=== PATIENT | female | born 1970 | race Caucasian/White ===

== ENCOUNTER 2017-07-07 13:24 | Emergency (ER) | payer BC, OTHER ==
[2017-07-07 14:50] VITALS: BP 144/95
--- NOTE | 2017-07-07 18:50 | UC ---
Lorenzo Hernandez Julia, scribed for Ramy Bearden MD on 07/07/17 at 1725 . General HPI - HPI Summary HPI Summary: This patient is a 46 year old F presenting to [facility] with a chief complaint of sudden onset of general malaise for the past four days. Patient reports chills, low grade fever (99), headache, ear pain, sore throat, fatigue, and body aches. Patient denies urinary changes, diarrhea, and rash. The patient rates the pain 5 /10 in severity. - History of Current Complaint Chief Complaint: UCRespiratory Stated Complaint: FLU SYMPTOMS Time Seen by Provider: 07/07/17 16:49 Hx Obtained From: Patient Hx Last Menstrual Period: 06/03/17 Onset/Duration: Lasting Days Timing: Constant Pain Intensity: 5 Pain Location at: body Character: aches Associated Signs & Symptoms: Positive: Other - Allergy/Home Medications Allergies/Adverse Reactions: Allergies Allergy/AdvReac Type Severity Reaction Status Date / Time Sulfa (Sulfonamide Allergy Hives Verified 07/07/17 14:50 Antibiotics) Home Medications: Home Medications Cyanocobalamin TAB* [Vitamin B12 TAB*] 500 mcg PO DAILY 07/07/17 [History Confirmed 07/07/17] DULoxetine DR CAP* [Cymbalta CAP*] 30 mg PO DAILY 07/07/17 [History Confirmed ] Hydrocodone/Acetaminophen [Vicodin 5-300 mg] 1 tab PO BEDTIME 07/07/17 [History Confirmed 07/07/17] Magnesium Oxide [Magnesium] 400 mg PO DAILY 07/07/17 [History Confirmed 07/07/17 ] Pregabalin CAP(*) [Lyrica CAP(*)] 25 mg PO BID 07/07/17 [History Confirmed 07/07] PMH/Surg Hx/FS Hx/Imm Hx - Additional Past Medical History Additional PMH: fibromyalgia - Surgical History Surgical History: Yes Surgery Procedure, Year, and Place: X2, D&C, TONSILS, BREAST REDUCTION - Family History Known Family History: Positive: Cardiac Disease - grandparents - Social History Alcohol Use: Rare Substance Use Type: None Smoking Status (MU): Never Smoked Tobacco Review of Systems Constitutional: Fever, Chills, Fatigue Skin: Negative ENT: Sore Throat, Ear Ache Gastrointestinal: Negative Genitourinary: Negative Musculoskeletal: Myalgia - body aches All Other Systems Reviewed And Are Negative: Yes Physical Exam Triage Information Reviewed: Yes Vital Signs: Initial Vital Signs Temp 98.1 F 07/07/17 14:45 Pulse 96 07/07/17 14:45 Resp 16 07/07/17 14:45 BP 144/95 07/07/17 14:45 Pulse Ox 98 07/07/17 14:45 Vital Signs Reviewed: Yes - Additional Comments General: well-appearing, no pain distress Skin: warm, color reflects adequate perfusion, dry Head: normal Eyes: EOMI, LOIDA ENT: normal, clear rhinorrhea Neck: supple, nontender Respiratory: CTA, breath sounds present Cardiovascular: RRR Abdomen: soft, nontender Bowel: present Musculoskeletal: normal, strength/ROM intact Neurological: normal, sensory/motor intact, A&O x3 Psychological: affect/mood appropriate Course/Dx - Course Course Of Treatment: SYMPTOMATIC TREATMENT; GET RECHECKED IF WORSE. - Differential Dx - Multi-Symptom Provider Diagnoses: UPPER RESPIRATORY TRACT INFECTION Discharge - Discharge Plan Condition: Stable Disposition: HOME Patient Education Materials: Upper Respiratory Infection (ED) Forms: *Work Release Referrals: Gurjit Madera NP [Primary Care Provider] - Additional Instructions: FOLLOW UP WITH YOUR DOCTOR. GET RECHECKED FOR ANY WORSENING OF YOUR CONDITION OR QUESTIONS OR CONCERNS. The documentation as recorded by the Lorenzo aviles Julia accurately reflects the service I personally performed and the decisions made by me, Ramy Bearden MD.
== END 2017-07-07 17:37 | disposition home or self-care (01) ==
LOC: UCEAST 13:24
DX: J06.9 Acute upper respiratory infection, unspecified (principal); M79.7 Fibromyalgia; Z88.2 Allergy status to sulfonamides
CPT/HCPCS: 87502; 99211; G0463

== ENCOUNTER 2018-08-24 05:35 | Inpatient (IN) | payer BC, OTHER ==
[~2018-08-24 05:35] MED LIST: Buffered Lidocaine 1% SYRIN* 1 ML/SYRINGE INTRADERM ONE
--- OUTSIDE RECORDS SUMMARY | 2018-08-24 05:38 | XMS REPORT | Continuity of Care Document ---
:1970 External Reference #:[id number] Author Name SegundoBeena galaviz Care Team Providers Name Role Phone Gurjit Madera MANIPULATIVE THERAPY SPECIALIST Primary Care Physician Unavailable Payers Date Identification Numbers Payment Provider Subscriber Policy Number: [id number] [facility] Elle Mcconnell PayID: [id number] Outreach Director [address] [place] [address] Policy Number: [id number] [facility] Elle Murphy PayID: [id number] [address] [place] [address] Advance Directives Description No Information Available Problems Description No Active Problems Family History Date Family Member(s) Observation Comments Father Healthy Mother Osteopenia Mother Thyroid Disease Number of Children 2 First Son Healthy Second Son Healthy Number of Siblings Siblings: 1 First Brother [employer] Paternal Grandfather due to broken neck at 18 months () Paternal Grandmother due to Old Age () Maternal Grandfather due to VA () Maternal Grandmother due to VA () Social History Type Date Description Comments Sex Unknown Education Highest level of education completed is an associate degree Marital Status Patient is Living Situation Lives with spouse and sons 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 Cigarette Use Never smoked cigarettes Alcohol Rarely drinks alcohol approx 3 x yr or less Tobacco Use Start: Unknown Patient has never smoked Drug Use Denies drug use Smoking Status Reviewed: 08/18/18 Patient has never smoked Daily Caffeine Drinks on average 1 cup of coffee a day, 1 soda a day and 1 cup of tea a day Exercise Type/Frequency Exercises regularly Current Seat Belt/Car Seat Always uses a seat belt Currently Active The patient is currently not sexually active Contraceptive Methods Does not currently use any method of control STD's No STD history Allergies, Adverse Reactions, Alerts Date Description Reaction Status Severity Comments 05/07/2008 Sulfa Active Medications Medication Date Status Form Strength Qnty SIG Indications Ordering Provider Wellbutrin Active Unknown 000 Cymbalta Active Unknown 000 Lyrica Active Unknown 000 Crestor Active Unknown 000 Vitamin B 12 Active Unknown 000 B Complete Active Unknown 000 Vitamin D Active Unknown (Ergocalciferol) 000 Magnesium Active Unknown 000 Kyleena Active placed Unknown 000 06/29/18 Motrin Hx Tablets 600mg 100tabs 1 tid- Xiomara 008 - qid prn Jump, pain ANP-C 019 Celexa Hx Unknown 000 - 015 Multivitamins Hx Unknown 000 - 019 Calcium-D Hx Unknown 000 - 019 Vicodin Hx Unknown 000 - 019 Medications Administered in Office Medication Date Status Form Strength Qnty SIG Indications Ordering Provider PT SCRN Tbco Administered Injection Isabella, Mirta as Non User 019 MD Sherry Immunizations Description No Information Available Vital Signs Date Vital Result Comment 08/18/2018 9:46am Height 62 inches 5'2" 3 Parity 2 06/29/2018 1:11pm BP Systolic 138 mmHg BP Diastolic 82 mmHg Height 62 inches 5'2" Weight 152.00 lb BMI (Body Mass Index) 27.8 kg/m2 Last Menstrual Period [id number] 3 Parity 2 03/13/2015 2:09pm BP Systolic 126 mmHg BP Diastolic 84 mmHg Height 62 inches 5'2" Weight 202.00 lb BMI (Body Mass Index) 36.9 kg/m2 Last Menstrual Period 2293340 3 Parity 2 03/21/2013 3:17pm BP Systolic 118 mmHg BP Diastolic 70 mmHg Height 62 inches 5'2" Weight 172.00 lb BMI (Body Mass Index) 31.5 kg/m2 Last Menstrual Period [id number] 3 Parity 2 11/11/2010 3:24pm BP Systolic 100 mmHg BP Diastolic 62 mmHg Height 61.25 inches 5'1.25" Weight 126.00 lb BMI (Body Mass Index) 23.6 kg/m2 Last Menstrual Period [id number] 3 Parity 2 09/30/2010 3:21pm BP Systolic 110 mmHg BP Diastolic 70 mmHg Height 61.25 inches 5'1.25" Weight 128.00 lb BMI (Body Mass Index) 24.0 kg/m2 Last Menstrual Period 6672196 3 Parity 2 09/08/2009 8:08am BP Systolic 98 mmHg BP Diastolic 60 mmHg Height 62.5 inches 5'2.50" Weight 172.00 lb BMI (Body Mass Index) 31.0 kg/m2 Last Menstrual Period 6061085 3 Parity 2 05/07/2008 9:56am BP Systolic 122 mmHg BP Diastolic 78 mmHg Height 62.5 inches 5'2.50" Weight 182.00 lb BMI (Body Mass Index) 32.8 kg/m2 Last Menstrual Period 9194106 3 Parity 2 Results Test Date Facility Test Result H/L Range Note Laboratory test 03/13/2015 [facility] Cytology SEE RESULT 1 finding [place]HA [place] [address] BELOW [phone] Human Papilloma Virus Rna Negative N Negative 2 Human Papilloma 03/22/2013 [facility] Human Papillomavirus See Comment 3 [place] [address] Source [phone] Human Papillomavirus High Risk Negative Negative 4 Laboratory test 03/21/2013 [facility] Cytology RUN DATE: finding [place]HA [place] [address] SEE [phone] NOTE> Laboratory test 09/30/2010 [facility] Cytology 6 finding [place] [address] ----- <SEE [phone] NOTE> Laboratory test 09/08/2009 [facility] Cytology 7 finding [place] [address] ----- <SEE [phone] NOTE> Laboratory test 05/07/2008 [facility] TSH 2.04 MIU/ML 0.34- 5.60 finding [place] [address] [phone] Thyroxine Free 05/07/2008 [facility] Free Thyroxine 0.60 NG/ML Low 0.61-1.24 8 [place] [address] [phone] Laboratory test 05/07/2008 [facility] Cytology 9 [place] [address] ----- <SEE [phone] NOTE> Laboratory test 03/05/2003 [facility] TSH 1.55 MIU/ML 0.34- 5.60 [place] [address] [phone] Free Thyroxine 0.60 ng/dL 0.58-1.64 1 SEE RESULT BELOW Name: ELLE YOUNG : [address]: Xiomara Ventura DELIVERY ASSOCIATE Acct: [id number] Unit: [id number] AGE: 44 Location: [facility] Re03/13/15 SEX: F Status: REG REF SPEC: [id number] GIANA: 03/13/15-[address]: Xiomara Ventura DELIVERY ASSOCIATE REQ: [id number] RECD: 03/14/15 STATUS: SOUT _ ORDERED: IMAGE ANALYSIS, HPV/Thin Prep FINAL DIAGNOSIS Negative for Intraepithelial lesion or Malignancy A. Ectocervical/Endocervical Specimen Adequacy: Satisfactory of evaluation Transformation zone component identified Patient Information: HPV: High risk HPV RNA testing regardless of pap results. Actual Specimen Date: 03/14/15 Last Menstrual Date: 02/26/15 Date of Last Specimen: 03/21/13 Date Time Test Result Flag (u) Normal Range 03/13/15 1459 HPV RNA Negative Negative The high-risk HPV types detected by the assay include: 16, 18, 31, 33, 35, 39, 45, 51, 52, 56, 58, 59, 66, and 68. Signed (signature on file) ESTEBAN Damian (ASC) 03/17 1211 This Pap test was evaluated with the assistance of the Precision Biopsyp Test Imaging System. Due to cytologic findings at the pbx repairer microscope, comprehensive manual rescreening by a High Tension Tester may be required. The Pap Smear is a screening test designed to aid in the detection of premalignant and malignant conditions of the uterine cervix. It is not a diagnostic procedure and should not be used as the sole means of detecting cervical cancer. Both false- positive and false- negative reports do occur. Depending on your risk status, a Pap smear should be obtained and evaluated every 1-3 years. END OF REPORT * ML=Testing performed at Main Lab DEPARTMENT OF PATHOLOGY, [address] [place] [address] Coleman Thorne M.D. Director [facility] # [id number] 2 The high-risk HPV types detected by the assay include: 16, 18, 31, 33, 35, 39, 45, 51, 52, 56, 58, 59, 66, and 68. 3 RESULT: Ectocervical/Endocervical 4 For types 16, 18, 31, 33, 35, 39, 45, 51, 52, 56, 58, 59 and 68. Test Performed by: [address] [address] Job Molder: Zachariah Moya III, M.D. 5 RUN DATE: 03/22/13 [facility] LAB LIVE PAGE 1 RUN TIME: [address] [place] [address] Specimen Inquiry Name: ELLE YOUNG : [address]: Xiomara Ventura CNP Acct: [id number] Unit: [id number] AGE: 42 Location: [facility] Re03/21/13 SEX: F Status: REG REF SPEC: [id number] GIANA: 03/21/13-[address] [facility] [address]: Xiomara Ventura [facility] REQ: [id number] RECD: 03/22/13-6 STATUS: SOUT _ ORDERED: IMAGE ANALYSIS, HPV/Thin Prep FINAL DIAGNOSIS Negative for Intraepithelial lesion or Malignancy COMMENTS: Specimen sent to [facility] in [place], [place] on 03/22/13 by [id number] at 1428. Results will be reported separately. A. Ectocervical/Endocervical Specimen Adequacy: Satisfactory of evaluation Transformation zone component identified Patient Information: HPV: High risk HPV DNA testing regardless of pap results. Actual Specimen Date: 03/21/13 Last Menstrual Date: 03/13/13 Date of Last Specimen: 09/30/10 Signed (signature on file) ESTEBAN Damian (ASCP) 03/22 1509 This Pap test was evaluated with the assistance of the R&R Sy-TecPrep Test Imaging System. Due to cytologic findings at the pbx repairer microscope, comprehensive manual rescreening by a High Tension Tester may be required. The Pap Smear is a screening test designed to aid in the detection of premalignant and malignant conditions of the uterine cervix. It is not a diagnostic procedure and should not be used as the sole means of detecting cervical cancer. Both false- positive and false- negative reports do occur. Depending on your risk status, a Pap smear shoudl be obtained and evaluated every 1-3 years. END OF REPORT * ML=Testing performed at Main Lab DEPARTMENT OF PATHOLOGY, [address] [place] [address] Coleman Thorne M.D. Director [facility] Permit #[id number] --- RUN DATE: 10/02/10 [facility] NMI LIVE PAGE 1 RUN TIME: 1216 Specimen Inquiry RUN USER: INTERFACE -- Name: ELLE YOUNG Accvance#: [id number] Status: REG REF Re09/30/10 Age/Sex: 40/F Unit#: [id number] Location: [facility] : [birth year] -- Specimen: [id number] SOUT Spec Date: 09/30/[address]: Xiomara Wisdom mp DELIVERY ASSOCIATE Spec Type: CYTOLOGY Received: 10/01/10-1321 Copies to: SOURCE ECTOCERVICAL/ENDOCERVICAL Thin Prep with Reflex HPV Test PATIENT INFORMATION ACTUAL COLLECTION DATE: 09/30/10 ? No POST MENOPAUSAL? No LAST MENSTRUAL PERIOD: 09/25/10 DATE OF PRIOR SPECIMEN: 09/08/09 ADEQUACY OF SPECIMEN Satisfactory for evaluation * Transformation zone component identified * DIAGNOSIS NEGATIVE FOR INTRAEPITHELIAL LESION OR MALIGNANCY * This Pap test was evaluated with the assistance of the R&R Sy-TecPrep Pap Test Imaging System. The Pap Smear is a screening test designed to aid in the detection of premalign ant and malignant conditions of the uterine cervix. It is not a diagnostic procedure a nd should not be used as the sole means of detecting cervical cancer. Both false- positiv e and false-negative reports do occur. Depending on your risk status, a Pap smear elissa uld be obtained and evaluated every one to three years. Final Interpretation electronically signed by: Claudine SHAIKH([facility]) 10/01/10 152 8 -- -- DEPARTMENT OF PATHOLOGY, [address] [place] [address] [facility] Permit #[id number] Coleman Thorne M.D. Director Madina Linares M.D. Zipper Cutter Dir mac -- 7 --- RUN DATE: 09/09/09 [facility] NMI LIVE PAGE 1 RUN TIME: 1150 Specimen Inquiry RUN USER: INTERFACE -- Name: ELLE YOUNG Status: REG REF Re09/08/09 Age/Sex: 39/F Unit#: [id number] Location: [facility] : [birth year] -- Specimen: [id number] SOUT Spec Date: 09/08/[address]: Xiomara Wisdom DELIVERY ASSOCIATE Spec Type: CYTOLOGY Received: 09/09/09 Copies to: SOURCE ECTOCERVICAL/ENDOCERVICAL Thin Prep with Reflex HPV Test PATIENT INFORMATION ACTUAL COLLECTION DATE: 09/08/09 LAST MENSTRUAL PERIOD: 08/29/09 DATE OF PRIOR SPECIMEN: 05/07/08 ADEQUACY OF SPECIMEN Satisfactory for evaluation * Transformation zone component identified * DIAGNOSIS NEGATIVE FOR INTRAEPITHELIAL LESION OR MALIGNANCY * This Pap test was evaluated with the assistance of the R&R Sy-TecPrep Pap Test Imaging System. The Pap Smear is a screening test designed to aid in the detection of premalign ant and malignant conditions of the uterine cervix. It is not a diagnostic procedure a nd should not be used as the sole means of detecting cervical cancer. Both false- positiv e and false-negative reports do occur. Depending on your risk status, a Pap smear elissa uld be obtained and evaluated every one to three years. Initial evaluation performed by Letha FOUNTAIN([facility]) 09/09/09 Final Interpretation electronically signed by: Letha FOUNTAIN([facility]) 09/09/09 1149 -- -- DEPARTMENT OF PATHOLOGY, [address] [place] [address] [facility] Permit #[id number] Coleman Thorne M.D. Director Madina Linares M.D. Zipper Cutter Dir bubba -- 8 PLEASE NOTE NEW REFERENCE RANGES. 9 --- RUN DATE: 05/08/08 [facility] NMI LIVE PAGE 1 RUN TIME: 1143 Specimen Inquiry RUN USER: INTERFACE -- Name: ELLE YOUNG Accvance#: [id number] Status: REG REF Re05/07/08 Age/Sex: 37/F Unit#: [id number] Location: [facility] : [birth year] -- Specimen: [id number] SOUT Spec Date: 05/07/[address]: Xiomara Wisdom mp DELIVERY ASSOCIATE Spec Type: CYTOLOGY Received: 05/08/08 Copies to: SOURCE ECTOCERVICAL/ENDOCERVICAL Thin Prep with Reflex HPV Test PATIENT INFORMATION ACTUAL COLLECTION DATE: 05/07/08 LAST MENSTRUAL PERIOD: 04/22/08 PATIENT HISTORY: Prior Elsewhere ADEQUACY OF SPECIMEN Satisfactory for evaluation * Transformation zone component identified * DIAGNOSIS NEGATIVE FOR INTRAEPITHELIAL LESION OR MALIGNANCY * This Pap test was evaluated with the assistance of the R&R Sy-TecPrep Pap Test Imaging System. The Pap Smear is a screening test designed to aid in the detection of premalign ant and malignant conditions of the uterine cervix. It is not a diagnostic procedure a nd should not be used as the sole means of detecting cervical cancer. Both false- positive and false-negative reports do occur. Depending on your risk status, a Pap smear elissa uld be obtained and evaluated every one to three years. Final Interpretation electronically signed by: Claudine SHAIKH([facility]) 05/08/08 114 3 -- -- DEPARTMENT OF PATHOLOGY, [address] [place] [address] [facility] Permit #[id number] Coleman Thorne M.D. Director Madina Linares M.D. Zipper Cutter Dir bubba -- Procedures Date Code Description Status 06/29/2018 52251 Insert Intrauterine Device Completed 02/27/2018 [id number] Mammogram Completed Encounters Type Date Location Provider Dx Diagnosis Office Visit 06/29/2018 [facility] Sherry Mason, Z30.430 Encounter for 1:00p insertion of intrauterine contraceptive device Z30.431 Encounter for routine checking of intrauterine contracep dev Office Visit 03/13/2015 2:20p [facility] Xiomara Ventura Z01.419 Encntr for planting material remover ANP-C exam (general) (routine) w/o abn findings Z12.4 Encounter for screening for malignant neoplasm of cervix Office Visit 03/21/2013 3:40p [facility] Xiomara Ventura V72.31 Routine Bottom Steep Tender ANP-C Examination V76.2 Screening Malignant Neoplasm Cervix Office Visit 11/11/2010 3:40p [facility] Xiomara Ventura, 281.9 Anemia Deficiency ANP-C Unspec Office Visit 09/30/2010 3:40p [facility] Xiomara Ventura V72.31 Routine Bottom Steep Tender ANP-C Examination V76.2 Screening Malignant Neoplasm Cervix 281.9 Anemia Deficiency Unspec Office Visit 09/08/2009 8:20a [facility] Xiomara Ventura, V72.31 Routine Bottom Steep Tender ANP-C Examination V76.2 Screening Malignant Neoplasm Cervix Office Visit 05/07/2008 10:00a [facility] Xiomara Ventura V72.31 Routine Bottom Steep Tender ANP-C Examination V76.2 Screening Malignant Neoplasm Cervix 626.2 Menstruation Excessive Or Frequent 625.3 Dysmenorrhea Office Visit 08/17/2004 9:15a [facility] Xiomara Ventura, V26.4 Procreative ANP-C Management General Counseling & Advice V72.40 Test Unconfirm Office Visit 03/05/2003 9:00a [facility] Xiomara Ventura, V72.3 Examination ANP-C Gynecological V78.1 Screening Deficiency Anemia Other & Unspec V77.1 Screening Diabetes Mellitus V77.0 Screening Thyroid Disorders Plan of Treatment 06/29/2018 - Sherry Mason MDZ30.334 Encounter for insertion of intrauterine contraceptive deviceComments:Sometimes patients experience nausea or dizziness soon after insertion. If this happens, sit/lay down right away to avoid passing out. You may experience irregular bleeding for 3-6 months. This is generally light bleeding or spotting. You may continue to have periods but they should be clinical nurse reviewer thanbefore. Your periods may go away completely or you may have a few days of light bleeding or brownish discharge in place of a period. If you are changing heavy pads more than once an hour, call the office. You may have cramping for a few days to a few weeks. Take 600mg of Ibuprofen and if pain is still severe call the office. Continue current form of control for 1 week.Return for IUD check in6-8 weeks. You should try to check your strings before your appointment.Z30.758 Encounter for routine checking of intrauterine contraceptive
[2018-08-24] MEDS ORDERED: Dexamethasone IV* 4 MG/ML 1 ML (4 MG) IV SLOW PU ONE (06:00)
[2018-08-24] MEDS ORDERED: Famotidine IV* 10 MG/ML 2 ML (20 mg) IV ONE (06:00)
[2018-08-24] MEDS ORDERED: Lactated Ringers 1000 ML Bag* 1,000 ML IV SCH (06:00)
[2018-08-24] MEDS ORDERED: Dexamethasone IV* 4 MG/ML 1 ML (4 MG) ONE (06:05)
[2018-08-24] MEDS ORDERED: ceFAZolin 2 GM in NS PREMIX(*) 2 GM/100 ML BAG IVPB ONE (06:05)
[2018-08-24] MEDS ORDERED: Famotidine IV* 10 MG/ML 2 ML (20 mg) ONE (06:05)
[2018-08-24] MEDS ORDERED: Ondansetron INJ* 2 MG/ML VIAL ONE ×2 (06:08→10:54)
[2018-08-24] MEDS ORDERED: Heparin VIAL(*) 5000 UNITS/ML VIAL (FIVE THOUSAND) ONE (06:08)
[2018-08-24] MEDS ORDERED: Scopolamine 1.5 mg* PATCH ONE (06:08)
[2018-08-24] MEDS ORDERED: Methylene Blue 0.5 %* 50 MG/10 ML AMP IV ONE (07:14)
[2018-08-24] MEDS ORDERED: Bupivacaine 0.5%* 50 ML VIAL ONE (07:14)
[2018-08-24] MEDS ORDERED: Atracurium* 10 MG/ML 10 ML VIAL ONE (07:18)
[2018-08-24] MEDS ORDERED: fentaNYL* 50 MCG/ML 5 ML VIAL (250 MCG VIAL) ONE (07:18)
[2018-08-24] MEDS ORDERED: Midazolam* 1 MG/ML 5 ML VIAL (5 MG) ONE (07:19)
[2018-08-24] MEDS ORDERED: Lidocaine 2% PF * 5 ML VIAL ONE (07:20)
[2018-08-24] MEDS ORDERED: Propofol* 10 MG/ML 20 ML BTL ONE (07:20)
[2018-08-24] MEDS ORDERED: DiMENhydriNATE IV* 50 MG/ML VIAL IV PUSH PRN (08:21)
[2018-08-24] MEDS ORDERED: HYDROmorphone INJ1* 1 MG/ML SYRINGE IV PRN (08:21)
[2018-08-24] MEDS ORDERED: Naloxone* 0.4 MG/ML 1 ML VIAL IV PRN (08:21)
[2018-08-24] MEDS ORDERED: oxyCODONE/Acetamin 5/325 MG* TAB PO PRN (08:21)
[2018-08-24] MEDS ORDERED: Magnesium Hydroxide LIQ* 30 ML UDC PO PRN (11:01)
[2018-08-24] MEDS ORDERED: HYDROcodone/ACETAMIN 5-325 MG* 1 TAB PO PRN (11:01)
[2018-08-24] MEDS ORDERED: Ondansetron INJ* 2 MG/ML VIAL IV PRN (11:01)
[2018-08-24] MEDS ORDERED: Al Hydrox/Mg Hydrox/Simet LIQ* 30 ML UDC PO PRN (11:01)
[2018-08-24] MEDS ORDERED: diPHENhydraMINE PO* 25 MG PO PRN ×3 (11:01→11:31)
[2018-08-24] MEDS ORDERED: Acetaminophen TAB* 325 MG PO PRN (11:01)
[2018-08-24] MEDS ORDERED: NS 0.9% 1000 ML** 1,000 ML IV SCH (11:15)
[2018-08-24] MEDS ORDERED: HYDROmorphone INJ* 0.5 MG/0.5 ML SYRINGE IV SLOW PU PRN (11:28)
[2018-08-24] MEDS ORDERED: fentaNYL* 50 MCG/ML 2 ML VIAL (100 MCG VIAL) ONE (11:30)
[2018-08-24] MEDS: fentaNYL* 50 MCG/ML 2 ML VIAL (100 MCG VIAL) IV PRN ×2 (11:34→12:04)
[2018-08-24] MEDS ORDERED: oxyCODONE/Acetamin 5/325 MG* TAB ONE (11:58)
[2018-08-24] MEDS: Heparin VIAL(*) 5000 UNITS/ML VIAL (FIVE THOUSAND) SUBCUT SCH ×2 (13:52→21:10)
[2018-08-24] MEDS: HYDROcodone/ACETAMIN 5-325 MG* 1 TAB PO PRN ×2 (16:00→20:08)
[2018-08-24] MEDS: Pregabalin CAP(*) 50 MG PO SCH (21:09)
[2018-08-24] MEDS: Docusate CAP* 100 MG PO SCH (21:09)
[2018-08-25] MEDS: HYDROcodone/ACETAMIN 5-325 MG* 1 TAB PO PRN ×3 (00:03→09:05)
[2018-08-25] MEDS: Heparin VIAL(*) 5000 UNITS/ML VIAL (FIVE THOUSAND) SUBCUT SCH (06:30)
[2018-08-25 07:52] VITALS: BP 96/60
[2018-08-25] MEDS ORDERED: CYANOCOBALAMIN 5000 MCG PO SCH (09:00)
[2018-08-25] MEDS ORDERED: DULoxetine DR CAP* 60 MG CAP.DR PO SCH (09:00)
[2018-08-25] MEDS ORDERED: Ferrous Sulfate TAB* 325 MG PO SCH (09:00)
[2018-08-25] MEDS ORDERED: Vitamin THERAPEUTIC TAB PO SCH (09:00)
[2018-08-25] MEDS ORDERED: Ascorbic Acid TAB* 500 MG PO SCH (09:00)
[2018-08-25] MEDS ORDERED: BuPROPion XL* 150 MG TAB.XL PO SCH (09:00)
[2018-08-25] MEDS ORDERED: Atorvastatin* 10 MG TAB PO SCH (09:00)
[2018-08-25] MEDS ORDERED: Magnesium Oxide TAB* 400 MG PO SCH (09:00)
[2018-08-25] MEDS ORDERED: Cholecalciferol TAB* 1000 UNITS PO SCH (09:00)
[2018-08-25] MEDS ORDERED: Vitamin B Complex TAB PO SCH (09:00)
[2018-08-25] MEDS: Pregabalin CAP(*) 50 MG PO SCH (09:04)
[2018-08-25] MEDS: Docusate CAP* 100 MG PO SCH (09:05)
== END 2018-08-25 10:35 | disposition home or self-care (01) | DRG 581 ==
LOC: AA 05:35 → SSU 11:01
PROVIDERS: ADMIT Plastic Surgery; ATTEND Plastic Surgery
PROC: 0W0F0ZZ Alteration of Abdominal Wall, Open Approach (ICD-10-PCS; principal; 2018-08-24 07:30)
DX: Z41.1 Encounter for cosmetic surgery (principal); E65 Localized adiposity; M79.7 Fibromyalgia; Z88.2 Allergy status to sulfonamides; Z82.49 Family history of ischemic heart disease and other diseases of the circulatory system
CPT/HCPCS: 81025; A9270-GY; A9272-GY; J0690; J1100; J1644; J2250; J2405; J2704; J3010